=== PATIENT | female | born 1940 | race Caucasian/White ===

== ENCOUNTER 2022-06-12 08:51 | Outpatient (CLI) | payer MEDICARE | END 2022-06-12 08:52 | disposition home or self-care (01) | LOC: RAD-FRANK 08:51 | PROVIDERS: ATTEND Nurse Practitioner Family | DX: R60.0 Localized edema (principal) | CPT/HCPCS: 71046 ==

== ENCOUNTER 2022-09-05 12:31 | Emergency (ER) | payer MEDICARE ==
[2022-09-05 13:28] LABS: #Lymphocytes 1.1 thou/uL (1.20-3.40); #Monocytes 1.2 thou/uL (0.11-0.59); #Neutrophils 9.5 thou/uL (1.40-6.50); %Basophils 0.3 % (0.0-1.0); %Eosinophils 0.4 % (0.0-10.0); %Lymphocytes 9.2 % (21.0-51.0); %Neutrophils 80.1 % (42.0-75.0); Hemoglobin 11.4 g/dL (12.0-16.0); Mean Corpuscular HGB CONC 30.6 g/dL (32.0-36.0); Mean Corpuscular Hemoglobin 28.5 pg (27.0-31.0); Mean Corpuscular Volume 93.3 fl (78.0-98.0); Platelet Count 506 10x3/uL (130-400); RBC Distribution Width 11.6 % (11.5-14.5); Red Blood Cell (RBC) Count 3.98 mill/uL (4.20-5.40); White Blood Cell (WBC) Count 11.9 10x3/uL (4.8-10.8)
[2022-09-05 13:41] LABS: ALT (SGPT) 9 U/L (8-55); AST (SGOT) 32 U/L (5-34); Alkaline Phosphatase 99 U/L (40-110); Anion Gap 11 mmol/L (10-20); BUN (Urea Nitrogen) 24 mg/dL (9.8-20.1); Bilirubin, Total 0.3 mg/dL (0.2-1.2); Calc. Creatinine Clearance 0 mL/min (70-130); Calcium 8.8 mg/dL (7.8-10.44); Carbon Dioxide 35 mmol/L (23-31); Chloride 95 mmol/L (98-107); Estimated GFR 36; Glucose 112 mg/dL (83-110); Magnesium 1.6 mg/dL (1.6-2.6); Potassium 3.9 mmol/L (3.5-5.1); Sodium 137 mmol/L (136-145)
[2022-09-05] MEDS ORDERED: Furosemide 40 MG/4 ML VIAL ONE (14:24)
== END 2022-09-05 15:10 | disposition home or self-care (01) ==
LOC: ERS 12:31
DX: R60.0 Localized edema (principal); R79.89 Other specified abnormal findings of blood chemistry
CPT/HCPCS: 36415; 71045; 80053; 83735; 83880; 84484; 85025; 93005; 96374; J1940

== ENCOUNTER 2022-09-30 15:42 | Inpatient (IN) | payer MEDICARE ==
[2022-09-30] MEDS ORDERED: Ipratropium/Albuterol 3 ML NEB ONE (16:12)
[2022-09-30] MEDS ORDERED: Dexamethasone 4 mg/ml Vial ONE (16:14)
[2022-09-30] MEDS ORDERED: Magnesium 2 GM/50 ML BAG (IN WATER) ONE (16:14)
[2022-09-30] MEDS ORDERED: Cefepime 2 GM VIAL ONE (16:14)
[2022-09-30] MEDS ORDERED: Vancomycin 1 GM/200 ML (FROZEN) BAG ONE (16:14)
[2022-09-30] MEDS ORDERED: NOREPINEPHRINE 8 MG/250 ML-D5W 250 ML ONE (16:41)
[2022-09-30 17:10] LABS: Hemoglobin 9.3 g/dL (12.0-16.0); Mean Corpuscular HGB CONC 31.5 g/dL (32.0-36.0); Mean Corpuscular Hemoglobin 28.5 pg (27.0-31.0); Mean Corpuscular Volume 90.4 fl (78.0-98.0); Mean Platelet Volume 6.8 fL (7.4-10.4); Platelet Count 433 10x3/uL (130-400); RBC Distribution Width 12.2 % (11.5-14.5); Red Blood Cell (RBC) Count 3.26 mill/uL (4.20-5.40); White Blood Cell (WBC) Count 10.5 10x3/uL (4.8-10.8)
[2022-09-30 17:35] LABS: Band 45 % (5-11); Lymphocytes 4 % (21-51); MDiff Complete? YES; Monocytes 2 % (0-10); Neutrophil 49 % (42-75); Platelet Morphology Comment Appears Increased; RBC Morphology Normal; Reflex for Review?? YES; Toxic Granulation SLIGHT
[2022-09-30 17:36] LABS: ALT (SGPT) 11 U/L (8-55); AST (SGOT) 29 U/L (5-34); Albumin 2.1 g/dL (3.4-4.8); Alkaline Phosphatase 87 U/L (40-110); Anion Gap 19 mmol/L (10-20); BUN (Urea Nitrogen) 82 mg/dL (9.8-20.1); Bilirubin, Total 0.5 mg/dL (0.2-1.2); CK (CPK) 133 U/L (29-168); Calc. Creatinine Clearance 0 mL/min (70-130); Calcium 7.1 mg/dL (7.8-10.44); Carbon Dioxide 18 mmol/L (23-31); Chloride 99 mmol/L (98-107); Estimated GFR 16; Globulin 3.4 g/dL (2.4-3.5); Glucose 86 mg/dL (83-110); Lipase 19 U/L (8-78); Potassium 3.2 mmol/L (3.5-5.1); Protein, Total 5.5 g/dL (5.8-8.1); Sodium 133 mmol/L (136-145)
[2022-09-30] MEDS ORDERED: Aspirin Chewable 81 MG TAB ONE (17:44)
[2022-09-30 17:52] LABS: CKMB 3.4 ng/mL (0-6.6)
[2022-09-30 17:54] LABS: Bacteria/HPF 4+ HPF (None Seen); Bilirubin Negative (Negative); Blood, Urine Trace (Negative); Clarity Turbid (Clear); Glucose, Urine (Dipstick) Normal (Negative); Ketone, Urine Negative (Negative); Leukocyte 250 Leu/uL (Negative); Nitrite 1+ (Negative); Protein, Urine (Dipstick) Negative (Neg-Trace); Specific Gravity, Urine 1.011 (1.002-1.036); Squamous Epithelial 0-3 HPF (0-3); Urobilinogen Normal mg/dL (Less than 2); WBC/HPF 21-50 HPF (0-3); pH, Urine 5.5 (5.0-9.0)
[2022-09-30] MEDS ORDERED: Acetaminophen 650 MG Suppository PR PRN (20:26)
[2022-09-30] MEDS ORDERED: Sodium Chloride 0.9% 1,000 ML IV SCH (20:30)
[2022-09-30] MEDS ORDERED: Ondansetron PF 4 MG/2 ML Vial IVP PRN (20:30)
[2022-09-30] MEDS ORDERED: Ondansetron ODT 4 MG TAB SL PRN (20:30)
[2022-09-30] MEDS ORDERED: Ipratropium/Albuterol 3 ML NEB NEB PRN (20:37)
[2022-09-30] MEDS ORDERED: Potassium Chloride 20 MEQ TAB PO SCH (20:45)
[2022-09-30] MEDS ORDERED: Electrolyte Replacement Protocol 1 EACH FS SCH (20:45)
[2022-09-30 21:12] LABS: Magnesium 1.1 mg/dL (1.6-2.6)
[2022-09-30 22:44] LABS: Troponin I 0.063 ng/mL (< 0.028)
[2022-09-30] MEDS ORDERED: Vancomycin Dose by Levels Sliding Scale (Wt <71) FS SCH (23:30)
[2022-10-01] MEDS ORDERED: VANCOMYCIN 1.25 GM/250 ML BAG 1.25 GM in Premix Bag 1 BAG IVPB SCH (01:00)
[2022-10-01] MEDS: metroNIDAZOLE 500 MG in Premix Bag 1 BAG IVPB SCH ×3 (01:09→16:07)
[2022-10-01] MEDS: Cefepime 1 GM in Sodium Chloride 0.9% 100 ML IVPB SCH ×2 (04:14→16:10)
[2022-10-01 04:51] LABS: Hemoglobin 8.6 g/dL (12.0-16.0); Mean Corpuscular Hemoglobin 28.3 pg (27.0-31.0); Mean Corpuscular Volume 91.3 fl (78.0-98.0); Platelet Count 433 10x3/uL (130-400); RBC Distribution Width 12.2 % (11.5-14.5); Red Blood Cell (RBC) Count 3.02 mill/uL (4.20-5.40); White Blood Cell (WBC) Count 10.3 10x3/uL (4.8-10.8)
[2022-10-01 05:00] LABS: Anion Gap 15 mmol/L (10-20); BUN (Urea Nitrogen) 82 mg/dL (9.8-20.1); Calc. Creatinine Clearance 17 mL/min (70-130); Calcium 7.5 mg/dL (7.8-10.44); Carbon Dioxide 23 mmol/L (23-31); Chloride 99 mmol/L (98-107); Estimated GFR 16; Glucose 173 mg/dL (83-110); Magnesium 1.6 mg/dL (1.6-2.6); Potassium 3.4 mmol/L (3.5-5.1); Sodium 134 mmol/L (136-145)
[2022-10-01 05:02] LABS: Troponin I 0.074 ng/mL (< 0.028)
[2022-10-01 05:44] LABS: Band 50 % (5-11); Lymphocytes 3 % (21-51); MDiff Complete? YES; Monocytes 2 % (0-10); Neutrophil 45 % (42-75)
[2022-10-01 06:49] LABS: SARS-CoV-2 NAA Rapid Test Not Detected (NotDetected)
[2022-10-01] MEDS ORDERED: MAGNESIUM IVPB SCH (11:15)
[2022-10-01] MEDS ORDERED: ADMIXTURE FEE IVPB SCH ×2 (11:15→11:30)
[2022-10-01] MEDS ORDERED: MAGNESIUM SULFATE IVPB SCH (11:30)
[2022-10-01] MEDS ORDERED: SODIUM CHLORIDE IVPB SCH (11:30)
[2022-10-01 17:21] LABS: Vancomycin, Random 12.5 ug/mL (See Comment)
[2022-10-01] MEDS ORDERED: methylPREDNISolone Sod Succ 40 MG VIAL IVP SCH (17:30)
[2022-10-01] MEDS: NOREPINEPHRINE 8 MG/250 ML-D5W 250 ML IVPB SCH (17:58)
[2022-10-01] MEDS ORDERED: Vancomycin HCl 750 MG in Sodium Chloride 0.9% 250 ML 250 ML IVPB SCH (18:00)
[2022-10-01] MEDS: Ipratropium/Albuterol 3 ML NEB NEB SCH ×2 (19:11→23:31)
[2022-10-01] MEDS: Acetaminophen 325 MG TAB PO PRN (20:13)
[2022-10-01 22:45] LABS: Campy jejuni + coli by PCR Negative (Negative); STEC Shiga Toxin 1+2 Negative (Negative); Salmonella spp. by PCR Negative (Negative); Shigella spp + EIEC by PCR Negative (Negative)
[2022-10-02] MEDS ORDERED: Melatonin 3 MG TAB PO SCH (00:30)
[2022-10-02] MEDS: metroNIDAZOLE 500 MG in Premix Bag 1 BAG IVPB SCH ×3 (00:50→16:12)
[2022-10-02] MEDS: Cefepime 1 GM in Sodium Chloride 0.9% 100 ML IVPB SCH (04:18)
[2022-10-02 04:55] LABS: Iron 32 ug/dL (50-170)
[2022-10-02 05:19] LABS: Ferritin 333.19 ng/mL (10-291)
[2022-10-02] MEDS: Ipratropium/Albuterol 3 ML NEB NEB SCH ×4 (07:08→23:43)
[2022-10-02] MEDS: methylPREDNISolone Sod Succ 40 MG VIAL IVP SCH (09:18)
[2022-10-02 09:23] LABS: Iron Binding Capacity, Total 53 mcg/dL (265-497)
[2022-10-02] MEDS ORDERED: Lactated Ringer's 500 ML IV SCH (09:30)
[2022-10-02 09:53] LABS: ALT (SGPT) 9 U/L (8-55); AST (SGOT) 39 U/L (5-34); Albumin 2.1 g/dL (3.4-4.8); Alkaline Phosphatase 89 U/L (40-110); Anion Gap 15 mmol/L (10-20); BUN (Urea Nitrogen) 69 mg/dL (9.8-20.1); Bilirubin, Total Less than 0.2 mg/dL (0.2-1.2); Calc. Creatinine Clearance 23 mL/min (70-130); Calcium 7.8 mg/dL (7.8-10.44); Carbon Dioxide 21 mmol/L (23-31); Chloride 103 mmol/L (98-107); Estimated GFR 22; Globulin 3.3 g/dL (2.4-3.5); Glucose 178 mg/dL (83-110); Potassium 3.6 mmol/L (3.5-5.1); Protein, Total 5.4 g/dL (5.8-8.1); Sodium 135 mmol/L (136-145)
[2022-10-02] MEDS: cefTRIAXone\\ROCEPHIN 1 GM in Sodium Chloride 0.9% 100 ML IVPB SCH (16:12)
[2022-10-02] MEDS ORDERED: Melatonin 3 MG TAB PO PRN (19:12)
[2022-10-02] MEDS: Apixaban 5 MG TAB PO SCH (21:26)
[2022-10-03] MEDS: metroNIDAZOLE 500 MG in Premix Bag 1 BAG IVPB SCH ×4 (00:29→23:11)
[2022-10-03] MEDS: NOREPINEPHRINE 8 MG/250 ML-D5W 250 ML IVPB SCH (00:30)
[2022-10-03] MEDS: Acetaminophen 325 MG TAB PO PRN ×2 (02:50→10:20)
[2022-10-03] MEDS: Ipratropium/Albuterol 3 ML NEB NEB SCH ×4 (06:50→23:33)
[2022-10-03 08:06] LABS: Hemoglobin 8.5 g/dL (12.0-16.0); Mean Corpuscular HGB CONC 30.9 g/dL (32.0-36.0); Mean Corpuscular Hemoglobin 28.7 pg (27.0-31.0); Mean Corpuscular Volume 92.8 fl (78.0-98.0); Mean Platelet Volume 6.9 fL (7.4-10.4); Platelet Count 406 10x3/uL (130-400); RBC Distribution Width 12.5 % (11.5-14.5); Red Blood Cell (RBC) Count 2.97 mill/uL (4.20-5.40); White Blood Cell (WBC) Count 11.9 10x3/uL (4.8-10.8)
[2022-10-03 08:28] LABS: Band 21 % (5-11); Lymphocytes 3 % (21-51); MDiff Complete? YES; Monocytes 4 % (0-10); Neutrophil 72 % (42-75); Toxic Granulation SLIGHT
[2022-10-03 08:37] LABS: Anion Gap 13 mmol/L (10-20); BUN (Urea Nitrogen) 53 mg/dL (9.8-20.1); Calc. Creatinine Clearance 32 mL/min (70-130); Carbon Dioxide 22 mmol/L (23-31); Chloride 105 mmol/L (98-107); Estimated GFR 34; Glucose 79 mg/dL (83-110); Potassium 3.7 mmol/L (3.5-5.1); Sodium 136 mmol/L (136-145)
[2022-10-03] MEDS: methylPREDNISolone Sod Succ 40 MG VIAL IVP SCH (08:50)
[2022-10-03] MEDS: Apixaban 5 MG TAB PO SCH ×2 (08:50→20:45)
[2022-10-03] MEDS ORDERED: Albumin 25% 25 GM/100 ML BOT IVPB SCH (10:30)
[2022-10-03] MEDS ORDERED: Furosemide 20 MG/2 ML VIAL SLOW IVP SCH (10:30)
[2022-10-03] MEDS: cefTRIAXone\\ROCEPHIN 1 GM in Sodium Chloride 0.9% 100 ML IVPB SCH (15:39)
[2022-10-03] MEDS ORDERED: QUEtiapine 25 MG TAB PO SCH (20:30)
[2022-10-04 04:29] LABS: #Lymphocytes 0.7 thou/uL (1.20-3.40); #Monocytes 0.7 thou/uL (0.11-0.59); #Neutrophils 6.5 thou/uL (1.40-6.50); %Eosinophils 0.1 % (0.0-10.0); %Lymphocytes 8.8 % (21.0-51.0); %Monocytes 9.2 % (0.0-10.0); Hemoglobin 7.4 g/dL (12.0-16.0); Mean Corpuscular HGB CONC 32.2 g/dL (32.0-36.0); Mean Corpuscular Hemoglobin 29.8 pg (27.0-31.0); Mean Corpuscular Volume 92.6 fl (78.0-98.0); Mean Platelet Volume 6.8 fL (7.4-10.4); Platelet Count 339 10x3/uL (130-400); RBC Distribution Width 12.6 % (11.5-14.5); Red Blood Cell (RBC) Count 2.48 mill/uL (4.20-5.40); White Blood Cell (WBC) Count 7.9 10x3/uL (4.8-10.8)
[2022-10-04 04:54] LABS: Anion Gap 11 mmol/L (10-20); BUN (Urea Nitrogen) 48 mg/dL (9.8-20.1); Calc. Creatinine Clearance 34 mL/min (70-130); Carbon Dioxide 28 mmol/L (23-31); Chloride 104 mmol/L (98-107); Estimated GFR 37; Glucose 92 mg/dL (83-110); Potassium 3.7 mmol/L (3.5-5.1); Sodium 139 mmol/L (136-145)
[2022-10-04] MEDS: Acetaminophen 325 MG TAB PO PRN ×2 (05:00→22:50)
[2022-10-04] MEDS: Ipratropium/Albuterol 3 ML NEB NEB SCH ×4 (06:43→23:50)
[2022-10-04] MEDS ORDERED: Albumin 25% 25 GM/100 ML BOT IVPB SCH (08:30)
[2022-10-04] MEDS: metroNIDAZOLE 500 MG in Premix Bag 1 BAG IVPB SCH ×3 (08:36→22:52)
[2022-10-04] MEDS: Apixaban 5 MG TAB PO SCH ×2 (08:36→20:10)
[2022-10-04] MEDS ORDERED: methylPREDNISolone Sod Succ 40 MG VIAL IVP SCH (09:00)
[2022-10-04] MEDS ORDERED: Furosemide 20 MG/2 ML VIAL SLOW IVP SCH (09:15)
[2022-10-04 12:39] LABS: Hemoglobin 7.5 g/dL (12.0-16.0)
[2022-10-04] MEDS: cefTRIAXone\\ROCEPHIN 1 GM in Sodium Chloride 0.9% 100 ML IVPB SCH (17:10)
[2022-10-05] MEDS: Ipratropium/Albuterol 3 ML NEB NEB SCH ×4 (07:28→23:22)
[2022-10-05] MEDS ORDERED: predniSONE 5 MG TAB PO SCH (08:00)
[2022-10-05] MEDS: Apixaban 5 MG TAB PO SCH ×2 (08:35→19:59)
[2022-10-05] MEDS: metroNIDAZOLE 500 MG in Premix Bag 1 BAG IVPB SCH ×2 (08:35→15:24)
[2022-10-05 10:19] VITALS: BMI 29.8
[2022-10-05] MEDS: cefTRIAXone\\ROCEPHIN 1 GM in Sodium Chloride 0.9% 100 ML IVPB SCH (16:09)
[2022-10-05] MEDS: Acetaminophen 325 MG TAB PO PRN (19:59)
[2022-10-06] MEDS: Acetaminophen 325 MG TAB PO PRN (02:00)
[2022-10-06] MEDS: Ipratropium/Albuterol 3 ML NEB NEB SCH ×3 (06:23→18:58)
[2022-10-06 06:57] LABS: Hemoglobin 6.4 g/dL (12.0-16.0); Mean Corpuscular HGB CONC 30.6 g/dL (32.0-36.0); Mean Corpuscular Hemoglobin 28.4 pg (27.0-31.0); Mean Corpuscular Volume 92.9 fl (78.0-98.0); Mean Platelet Volume 6.8 fL (7.4-10.4); Platelet Count 342 10x3/uL (130-400); RBC Distribution Width 12.9 % (11.5-14.5); Red Blood Cell (RBC) Count 2.27 mill/uL (4.20-5.40); White Blood Cell (WBC) Count 10.3 10x3/uL (4.8-10.8)
[2022-10-06 07:18] LABS: Anion Gap 9 mmol/L (10-20); BUN (Urea Nitrogen) 23 mg/dL (9.8-20.1); Calc. Creatinine Clearance 61 mL/min (70-130); Calcium 7.9 mg/dL (7.8-10.44); Carbon Dioxide 31 mmol/L (23-31); Chloride 105 mmol/L (98-107); Estimated GFR 72; Glucose 86 mg/dL (83-110); Potassium 4.1 mmol/L (3.5-5.1); Sodium 141 mmol/L (136-145)
[2022-10-06] MEDS: Apixaban 5 MG TAB PO SCH ×2 (08:30→20:29)
[2022-10-06] MEDS: predniSONE 20 MG TAB PO SCH (08:30)
[2022-10-06 09:28] LABS: Band 24 % (5-11); Eosinophils 1 % (0-10); Hypochromia SLIGHT = 6-15 cells (100X) (0-5/hpf); Lymphocytes 12 % (21-51); MDiff Complete? YES; Monocytes 4 % (0-10); Neutrophil 59 % (42-75); Polychromasia SLIGHT = 2-3 cells (100X) (0-2/hpf)
[2022-10-06] MEDS ORDERED: Furosemide 40 MG/4 ML VIAL SLOW IVP SCH (16:45)
[2022-10-07] MEDS: Acetaminophen 325 MG TAB PO PRN (02:24)
[2022-10-07 07:35] LABS: #Eosinphils 0.1 thou/uL (0.0-0.7); #Lymphocytes 1.2 thou/uL (1.20-3.40); #Monocytes 0.9 thou/uL (0.11-0.59); #Neutrophils 7.1 thou/uL (1.40-6.50); %Eosinophils 1.5 % (0.0-10.0); %Lymphocytes 12.6 % (21.0-51.0); %Monocytes 9.7 % (0.0-10.0); %Neutrophils 76.1 % (42.0-75.0); Hemoglobin 7.6 g/dL (12.0-16.0); Mean Corpuscular HGB CONC 30.4 g/dL (32.0-36.0); Mean Corpuscular Hemoglobin 29.4 pg (27.0-31.0); Mean Corpuscular Volume 96.5 fl (78.0-98.0); Mean Platelet Volume 6.9 fL (7.4-10.4); Platelet Count 332 10x3/uL (130-400); RBC Distribution Width 13.1 % (11.5-14.5); Red Blood Cell (RBC) Count 2.59 mill/uL (4.20-5.40); White Blood Cell (WBC) Count 9.3 10x3/uL (4.8-10.8)
[2022-10-07 07:37] LABS: Anion Gap 11 mmol/L (10-20); BUN (Urea Nitrogen) 19 mg/dL (9.8-20.1); Calc. Creatinine Clearance 58 mL/min (70-130); Calcium 7.6 mg/dL (7.8-10.44); Carbon Dioxide 29 mmol/L (23-31); Chloride 103 mmol/L (98-107); Estimated GFR 69; Glucose 80 mg/dL (83-110); Potassium 4.4 mmol/L (3.5-5.1); Sodium 139 mmol/L (136-145)
[2022-10-07] MEDS: predniSONE 20 MG TAB PO SCH (08:58)
[2022-10-07] MEDS: Apixaban 5 MG TAB PO SCH ×2 (08:58→20:40)
[2022-10-07] MEDS: Furosemide 40 MG TAB PO SCH (08:58)
[2022-10-07] MEDS: Ipratropium/Albuterol 3 ML NEB NEB SCH ×5 (10:51→23:19)
[2022-10-08] MEDS: Ipratropium/Albuterol 3 ML NEB NEB SCH ×3 (06:28→18:53)
[2022-10-08] MEDS: predniSONE 20 MG TAB PO SCH (08:16)
[2022-10-08] MEDS: Furosemide 40 MG TAB PO SCH (08:16)
[2022-10-08] MEDS: Apixaban 5 MG TAB PO SCH ×2 (08:16→20:49)
[2022-10-09] MEDS: Ipratropium/Albuterol 3 ML NEB NEB SCH ×5 (00:04→23:32)
[2022-10-09] MEDS: Apixaban 5 MG TAB PO SCH ×2 (08:18→20:38)
[2022-10-09] MEDS: predniSONE 20 MG TAB PO SCH (08:18)
[2022-10-09] MEDS: Furosemide 40 MG TAB PO SCH (08:19)
[2022-10-10] MEDS ORDERED: traZODone HCl 50 MG TAB PO SCH (01:00)
[2022-10-10] MEDS: Ipratropium/Albuterol 3 ML NEB NEB SCH ×3 (06:56→19:00)
[2022-10-10] MEDS: Apixaban 5 MG TAB PO SCH ×2 (07:55→20:10)
[2022-10-10] MEDS: predniSONE 20 MG TAB PO SCH (07:55)
[2022-10-10] MEDS: Furosemide 40 MG TAB PO SCH (07:55)
[2022-10-11] MEDS: Ipratropium/Albuterol 3 ML NEB NEB SCH ×4 (00:10→18:17)
[2022-10-11 07:34] LABS: #Eosinphils 0.1 thou/uL (0.0-0.7); #Lymphocytes 1.2 thou/uL (1.20-3.40); #Neutrophils 8.2 thou/uL (1.40-6.50); %Basophils 0.1 % (0.0-1.0); %Eosinophils 0.7 % (0.0-10.0); %Lymphocytes 11.3 % (21.0-51.0); %Monocytes 9.9 % (0.0-10.0); %Neutrophils 78.1 % (42.0-75.0); Mean Corpuscular HGB CONC 30.3 g/dL (32.0-36.0); Mean Corpuscular Hemoglobin 29.4 pg (27.0-31.0); Mean Platelet Volume 6.5 fL (7.4-10.4); Platelet Count 474 10x3/uL (130-400); RBC Distribution Width 14.4 % (11.5-14.5); Red Blood Cell (RBC) Count 2.39 mill/uL (4.20-5.40); White Blood Cell (WBC) Count 10.5 10x3/uL (4.8-10.8)
[2022-10-11 07:49] LABS: BUN (Urea Nitrogen) 21 mg/dL (9.8-20.1); Calc. Creatinine Clearance 68 mL/min (70-130); Estimated GFR 83; Glucose 90 mg/dL (83-110)
[2022-10-11 07:59] LABS: Anion Gap 15 mmol/L (10-20); Carbon Dioxide 34 mmol/L (23-31); Chloride 97 mmol/L (98-107); Potassium 4.5 mmol/L (3.5-5.1); Sodium 141 mmol/L (136-145)
[2022-10-11] MEDS: Furosemide 40 MG TAB PO SCH (08:34)
[2022-10-11] MEDS: predniSONE 20 MG TAB PO SCH (08:34)
[2022-10-11] MEDS: Apixaban 5 MG TAB PO SCH ×2 (08:34→20:32)
[2022-10-12] MEDS: Ipratropium/Albuterol 3 ML NEB NEB SCH ×4 (00:04→18:19)
[2022-10-12 06:23] LABS: #Monocytes 0.9 thou/uL (0.11-0.59); %Basophils 0.1 % (0.0-1.0); %Eosinophils 0.3 % (0.0-10.0); %Lymphocytes 13.2 % (21.0-51.0); %Monocytes 11.1 % (0.0-10.0); %Neutrophils 75.3 % (42.0-75.0); Hemoglobin 6.5 g/dL (12.0-16.0); Mean Corpuscular HGB CONC 30.8 g/dL (32.0-36.0); Mean Corpuscular Hemoglobin 29.7 pg (27.0-31.0); Mean Corpuscular Volume 96.5 fl (78.0-98.0); Mean Platelet Volume 6.4 fL (7.4-10.4); Platelet Count 515 10x3/uL (130-400); RBC Distribution Width 14.5 % (11.5-14.5); Red Blood Cell (RBC) Count 2.19 mill/uL (4.20-5.40); White Blood Cell (WBC) Count 7.9 10x3/uL (4.8-10.8)
[2022-10-12 06:45] LABS: BUN (Urea Nitrogen) 23 mg/dL (9.8-20.1); Calc. Creatinine Clearance 69 mL/min (70-130); Calcium 8.2 mg/dL (7.8-10.44); Estimated GFR 85; Glucose 84 mg/dL (83-110)
[2022-10-12 06:54] LABS: Anion Gap 14 mmol/L (10-20); Carbon Dioxide 34 mmol/L (23-31); Chloride 96 mmol/L (98-107); Potassium 4.8 mmol/L (3.5-5.1); Sodium 139 mmol/L (136-145)
[2022-10-12] MEDS: predniSONE 20 MG TAB PO SCH (08:38)
[2022-10-12] MEDS: Furosemide 40 MG TAB PO SCH (08:38)
[2022-10-12] MEDS ORDERED: Iopamidol 370 76% 50 ML VIAL FS ONE (12:47)
[2022-10-12] MEDS ORDERED: Melatonin 3 MG TAB PO SCH (21:00)
[2022-10-13] MEDS: Ipratropium/Albuterol 3 ML NEB NEB SCH ×3 (00:31→15:03)
[2022-10-13 07:05] LABS: #Eosinphils 0.1 thou/uL (0.0-0.7); #Lymphocytes 0.9 thou/uL (1.20-3.40); #Monocytes 0.9 thou/uL (0.11-0.59); #Neutrophils 5.4 thou/uL (1.40-6.50); %Basophils 0.3 % (0.0-1.0); %Eosinophils 0.7 % (0.0-10.0); %Lymphocytes 12.6 % (21.0-51.0); %Monocytes 12.6 % (0.0-10.0); %Neutrophils 73.7 % (42.0-75.0); Hemoglobin 8.9 g/dL (12.0-16.0); Mean Corpuscular HGB CONC 31.4 g/dL (32.0-36.0); Mean Corpuscular Hemoglobin 30.1 pg (27.0-31.0); Mean Corpuscular Volume 95.9 fl (78.0-98.0); Mean Platelet Volume 6.5 fL (7.4-10.4); Platelet Count 495 10x3/uL (130-400); RBC Distribution Width 15.6 % (11.5-14.5); Red Blood Cell (RBC) Count 2.96 mill/uL (4.20-5.40); White Blood Cell (WBC) Count 7.3 10x3/uL (4.8-10.8)
[2022-10-13 07:12] LABS: Anion Gap 12 mmol/L (10-20); BUN (Urea Nitrogen) 23 mg/dL (9.8-20.1); Calc. Creatinine Clearance 72 mL/min (70-130); Calcium 8.5 mg/dL (7.8-10.44); Carbon Dioxide 35 mmol/L (23-31); Chloride 97 mmol/L (98-107); Estimated GFR 87; Glucose 76 mg/dL (83-110); Potassium 4.4 mmol/L (3.5-5.1); Sodium 140 mmol/L (136-145)
[2022-10-13] MEDS: Furosemide 40 MG TAB PO SCH (09:05)
[2022-10-13 15:08] VITALS: BP 110/74; TEMP 98
== END 2022-10-13 17:03 | DRG 871 ==
LOC: ERS 15:42 → CCU 17:38 → T4-A 10-04 15:35
PROVIDERS: ADMIT Internal Medicine; ATTEND Family Medicine
PROC: 06HY33Z Insertion of Infusion Device into Lower Vein, Percutaneous Approach (ICD-10-PCS; principal; 2022-09-30)
PROC: 3E03329 Introduction of Other Anti-infective into Peripheral Vein, Percutaneous Approach (ICD-10-PCS; 2022-09-30)
PROC: 3E043XZ Introduction of Vasopressor into Central Vein, Percutaneous Approach (ICD-10-PCS; 2022-09-30)
PROC: 30233N1 Transfusion of Nonautologous Red Blood Cells into Peripheral Vein, Percutaneous Approach (ICD-10-PCS; 2022-10-06)
PROC: 06H03DZ Insertion of Intraluminal Device into Inferior Vena Cava, Percutaneous Approach (ICD-10-PCS; 2022-10-12)
DX: A41.51 Sepsis due to Escherichia coli [E. coli] (principal); I21.A1 Myocardial infarction type 2; R65.21 Severe sepsis with septic shock; J96.21 Acute and chronic respiratory failure with hypoxia; N17.9 Acute kidney failure, unspecified; J44.1 Chronic obstructive pulmonary disease with (acute) exacerbation; N18.4 Chronic kidney disease, stage 4 (severe); E87.1 Hypo-osmolality and hyponatremia; K55.9 Vascular disorder of intestine, unspecified; N30.00 Acute cystitis without hematuria; I82.431 Acute embolism and thrombosis of right popliteal vein; Z20.822 Contact with and (suspected) exposure to COVID-19; E87.6 Hypokalemia; E83.42 Hypomagnesemia; E88.09 Other disorders of plasma-protein metabolism, not elsewhere classified; D63.1 Anemia in chronic kidney disease; I12.9 Hypertensive chronic kidney disease with stage 1 through stage 4 chronic kidney disease, or unspecified chronic kidney disease; E86.0 Dehydration; Z90.710 Acquired absence of both cervix and uterus; Z87.891 Personal history of nicotine dependence; Z79.899 Other long term (current) drug therapy; Z79.82 Long term (current) use of aspirin; Z99.81 Dependence on supplemental oxygen
CPT/HCPCS: 36415; 36430; 36556; 37191; 51702; 71045; 74176; 80048; 80053; 80202; 81003; 81015; 82040; 82550; 82553; 82607; 82728; 83540; 83550; 83605; 83690; 83735; 83880; 84484; 85025; 85060; 86850; 86900; 86901; 87077; 87086; 87186; 87324; 87328; 87329; 87449; 87505; 87811; 93005; 93306; 93970; 94640; 96365; 96366; 96368; 96375; 97139; 99292; C1769; C1880; J0692; J0696; J1100; J1650; J1940; J2920; J3370; J3370-JW; J3475; J3490; J7050; J7120; J7512; J7611; J7620; P9016; P9047; Q9967; U0002; U0003; U0005

== ENCOUNTER 2022-10-20 08:50 | Inpatient (IN) | payer MEDICARE ==
[2022-10-20] MEDS ORDERED: Iopamidol-370 76% 500 ML 1 ML ONE (09:22)
[2022-10-20] MEDS ORDERED: Dexamethasone 4 mg/ml Vial ONE (09:23)
[2022-10-20] MEDS ORDERED: Ipratropium/Albuterol 3 ML NEB ONE ×2 (09:27→13:53)
[2022-10-20 09:35] LABS: Actual Bicarbonate (HCO3a) 37.9 mEq/L (22-28); Analyzer IN Cardio ER; Base Excess (BEa) 8.3 mEq/L (-2.0 to +3.0); Carboxyhemoglobin (COHb) 0.7 gm% (0.0-3.0); Hemoglobin (Hb) 10.5 g/dL (12.0-16.0); O2 Tension (PaO2), arterial 131.7 mmHg (> 60.0); Potassium - ABG Lab 3.53 mmol/L (3.70-5.30); pH, Arterial 7.25 (7.35-7.45)
[2022-10-20 09:41] LABS: CO2 Tension 88.4 mmHg (35.0-45.0)
[2022-10-20 09:42] LABS: Puncture Site RRA
[2022-10-20 10:04] LABS: INR-International Normal Ratio 0.9; Prothrombin Time 12.4 sec (12.0-14.7)
[2022-10-20 10:14] LABS: ALT (SGPT) 22 U/L (8-55); AST (SGOT) 27 U/L (5-34); Albumin 3.2 g/dL (3.4-4.8); Alkaline Phosphatase 80 U/L (40-110); Anion Gap 12 mmol/L (10-20); BUN (Urea Nitrogen) 21 mg/dL (9.8-20.1); Bilirubin, Total 0.4 mg/dL (0.2-1.2); CK (CPK) 27 U/L (29-168); Calc. Creatinine Clearance 0 mL/min (70-130); Calcium 9.3 mg/dL (7.8-10.44); Carbon Dioxide 34 mmol/L (23-31); Chloride 99 mmol/L (98-107); Estimated GFR 63; Globulin 3.5 g/dL (2.4-3.5); Glucose 122 mg/dL (83-110); Lipase 24 U/L (8-78); Potassium 3.7 mmol/L (3.5-5.1); Protein, Total 6.7 g/dL (5.8-8.1); Sodium 141 mmol/L (136-145)
[2022-10-20 10:22] LABS: SARS-CoV-2 NAA Rapid Test Not Detected (NotDetected)
[2022-10-20 10:40] LABS: #Lymphocytes 0.5 thou/uL (1.20-3.40); #Monocytes 0.7 thou/uL (0.11-0.59); #Neutrophils 7.8 thou/uL (1.40-6.50); %Basophils 0.1 % (0.0-1.0); %Eosinophils 0.4 % (0.0-10.0); %Lymphocytes 5.5 % (21.0-51.0); %Monocytes 7.7 % (0.0-10.0); %Neutrophils 86.3 % (42.0-75.0); Hemoglobin 9.7 g/dL (12.0-16.0); Mean Corpuscular HGB CONC 29.6 g/dL (32.0-36.0); Mean Corpuscular Hemoglobin 29.4 pg (27.0-31.0); Mean Corpuscular Volume 99.6 fl (78.0-98.0); Platelet Count 424 10x3/uL (130-400); RBC Distribution Width 14.6 % (11.5-14.5)
[2022-10-20 10:50] LABS: Hypochromia SLIGHT = 6-15 cells (100X) (0-5/hpf); MDiff Complete? YES; Platelet Morphology Comment Appears Increased; Polychromasia SLIGHT = 2-3 cells (100X) (0-2/hpf); Stomatocytes MODERATE= 6-15 cells (100X) (0-1/hpf); Target Cells SLIGHT = 2-5 cells (100X) (0-1/hpf)
[2022-10-20] MEDS ORDERED: Cefepime 2 GM VIAL ONE (11:19)
[2022-10-20] MEDS ORDERED: Guaifenesin DM 100-10/5 ML UDCUP PO PRN (12:30)
[2022-10-20] MEDS ORDERED: Bisacodyl 5 MG TAB PO PRN (12:30)
[2022-10-20] MEDS ORDERED: HYDROcodone/Acetaminophen 5/325 mg Tablet PO PRN (12:30)
[2022-10-20] MEDS ORDERED: Ondansetron PF 4 MG/2 ML Vial IVP PRN (12:30)
[2022-10-20] MEDS ORDERED: Senokot S 8.6-50 MG TAB PO PRN (12:30)
[2022-10-20] MEDS ORDERED: Acetaminophen 650 MG Suppository PR PRN (12:30)
[2022-10-20] MEDS ORDERED: Acetaminophen 325 MG TAB PO PRN (12:30)
[2022-10-20] MEDS ORDERED: busPIRone HCl 5 MG TAB PO PRN (12:34)
[2022-10-20] MEDS ORDERED: Vancomycin 1 GM/200 ML (FROZEN) BAG ONE (12:44)
[2022-10-20] MEDS ORDERED: cefTRIAXone\\ROCEPHIN 2 GM in Sodium Chloride 0.9% 100 ML IVPB SCH (14:00)
[2022-10-20] MEDS: Ipratropium/Albuterol 3 ML NEB NEB SCH ×2 (14:07→19:07)
[2022-10-20] MEDS ORDERED: methylPREDNISolone Sod Succ 40 MG VIAL ONE ×2 (15:32→22:58)
[2022-10-20] MEDS ORDERED: cefTRIAXone\\ROCEPHIN 2 GM VIAL ONE (15:32)
[2022-10-20] MEDS: methylPREDNISolone Sod Succ 40 MG VIAL IVP SCH ×2 (15:46→23:05)
[2022-10-20] MEDS: Budesonide 0.5 MG/2 ML NEB NEB SCH (19:08)
[2022-10-20] MEDS ORDERED: Famotidine 20 MG TAB PO SCH (21:00)
[2022-10-20] MEDS ORDERED: Famotidine 20 MG TAB ONE (22:58)
[2022-10-21 01:44] LABS: #Lymphocytes 0.4 thou/uL (1.20-3.40); #Monocytes 0.8 thou/uL (0.11-0.59); #Neutrophils 6.8 thou/uL (1.40-6.50); %Basophils 0.1 % (0.0-1.0); %Eosinophils 0.4 % (0.0-10.0); %Lymphocytes 5.2 % (21.0-51.0); %Monocytes 10.2 % (0.0-10.0); %Neutrophils 84.1 % (42.0-75.0); Hemoglobin 8.5 g/dL (12.0-16.0); Mean Corpuscular HGB CONC 30.8 g/dL (32.0-36.0); Mean Corpuscular Volume 97.6 fl (78.0-98.0); Mean Platelet Volume 7.2 fL (7.4-10.4); Platelet Count 408 10x3/uL (130-400); RBC Distribution Width 14.7 % (11.5-14.5); Red Blood Cell (RBC) Count 2.84 mill/uL (4.20-5.40)
[2022-10-21 02:20] LABS: Anion Gap 14 mmol/L (10-20); BUN (Urea Nitrogen) 20 mg/dL (9.8-20.1); Calc. Creatinine Clearance 0 mL/min (70-130); Carbon Dioxide 28 mmol/L (23-31); Chloride 102 mmol/L (98-107); Estimated GFR 69; Glucose 90 mg/dL (83-110); Potassium 4.1 mmol/L (3.5-5.1); Sodium 140 mmol/L (136-145)
[2022-10-21] MEDS ORDERED: LORazepam 2 MG/ML SYR.(CARPUJECT) ONE (04:08)
[2022-10-21] MEDS ORDERED: LORazepam 2 MG/ML SYR.(CARPUJECT) IVP SCH (04:15)
[2022-10-21] MEDS ORDERED: methylPREDNISolone Sod Succ 40 MG VIAL ONE (06:37)
[2022-10-21] MEDS: methylPREDNISolone Sod Succ 40 MG VIAL IVP SCH (06:37)
[2022-10-21] MEDS ORDERED: Budesonide 0.5 MG/2 ML NEB ONE (07:30)
[2022-10-21] MEDS ORDERED: Ipratropium/Albuterol 3 ML NEB ONE (07:30)
[2022-10-21] MEDS: Ipratropium/Albuterol 3 ML NEB NEB SCH (07:31)
[2022-10-21] MEDS: Budesonide 0.5 MG/2 ML NEB NEB SCH (07:32)
[2022-10-21 10:45] VITALS: BP 104/77; TEMP 98
== END 2022-10-21 10:43 | DRG 189 ==
LOC: ERS 08:50 → ERHOLD 12:18
PROVIDERS: ADMIT Hospitalist; ATTEND Hospitalist
DX: J96.21 Acute and chronic respiratory failure with hypoxia (principal); J44.1 Chronic obstructive pulmonary disease with (acute) exacerbation; J96.22 Acute and chronic respiratory failure with hypercapnia; Z66 Do not resuscitate; Z20.822 Contact with and (suspected) exposure to COVID-19; I10 Essential (primary) hypertension; D64.9 Anemia, unspecified; Z87.891 Personal history of nicotine dependence; Z99.81 Dependence on supplemental oxygen; Z79.51 Long term (current) use of inhaled steroids; Z79.52 Long term (current) use of systemic steroids; Z90.710 Acquired absence of both cervix and uterus
CPT/HCPCS: 36415; 36600; 71045; 71275; 74018; 80048; 80053; 82550; 82805; 83605; 83690; 83880; 84484; 85025; 85610; 85730; 87040; 93005; 94640; 94644; 94660; J0692; J0696; J1100; J1956; J2060; J2920; J3370-JW; J3490; J7611; J7620; J7626; Q9967; U0002

== ENCOUNTER 2022-10-25 08:16 | Inpatient (IN) | payer MEDICARE ==
[2022-10-25 08:38] LABS: Analyzer IN Cardio ER; Calcium, Ionized (venous) 1.06 mmol/L (1.16-1.32); Chloride (VBG) 104 mmol/L (98-106); Hemoglobin (Hb) 10.7 g/dL (11.7-16.1); Sodium 142.7 mmol/L (133-146)
[2022-10-25 08:52] LABS: pH (venous) 7.17 (7.32-7.43)
[2022-10-25 08:53] LABS: Actual Bicarbonate (HCO3v) 43 mEq/L (22-28)
[2022-10-25 08:58] LABS: #Eosinphils 0.1 thou/uL (0.0-0.7); #Lymphocytes 0.8 thou/uL (1.20-3.40); #Neutrophils 11.5 thou/uL (1.40-6.50); %Basophils 0.1 % (0.0-1.0); %Eosinophils 0.5 % (0.0-10.0); %Monocytes 7.2 % (0.0-10.0); %Neutrophils 86.3 % (42.0-75.0); Hemoglobin 9.7 g/dL (12.0-16.0); Mean Corpuscular HGB CONC 28.9 g/dL (32.0-36.0); Platelet Count 423 10x3/uL (130-400); RBC Distribution Width 15.1 % (11.5-14.5); Red Blood Cell (RBC) Count 3.33 mill/uL (4.20-5.40); White Blood Cell (WBC) Count 13.4 10x3/uL (4.8-10.8)
[2022-10-25] MEDS ORDERED: Albuterol 2.5 MG/0.5 ML NEB ONE (08:59)
[2022-10-25] MEDS ORDERED: Ipratropium/Albuterol 3 ML NEB ONE ×3 (08:59→12:55)
[2022-10-25] MEDS ORDERED: Magnesium 2 GM/50 ML BAG (IN WATER) ONE (09:02)
[2022-10-25] MEDS ORDERED: Vancomycin 1 GM/200 ML (FROZEN) BAG ONE (09:02)
[2022-10-25] MEDS ORDERED: Cefepime 2 GM VIAL ONE (09:02)
[2022-10-25] MEDS ORDERED: methylPREDNISolone Sod Succ/PF 125 MG/2 ML VIAL ONE (09:10)
[2022-10-25 09:13] LABS: ALT (SGPT) 15 U/L (8-55); AST (SGOT) 26 U/L (5-34); Alkaline Phosphatase 82 U/L (40-110); Anion Gap 10 mmol/L (10-20); BUN (Urea Nitrogen) 13 mg/dL (9.8-20.1); Bilirubin, Total 0.3 mg/dL (0.2-1.2); Calc. Creatinine Clearance 0 mL/min (70-130); Calcium 8.3 mg/dL (7.8-10.44); Carbon Dioxide 37 mmol/L (23-31); Chloride 103 mmol/L (98-107); Estimated GFR 71; Globulin 3.5 g/dL (2.4-3.5); Glucose 110 mg/dL (83-110); Potassium 3.8 mmol/L (3.5-5.1); Protein, Total 6.5 g/dL (5.8-8.1); Sodium 146 mmol/L (136-145)
[2022-10-25 09:21] LABS: Hypochromia SLIGHT = 6-15 cells (100X) (0-5/hpf); MDiff Complete? YES; Macrocytosis SLIGHT = 6-15 cells (100X) (0-5/hpf); Platelet Morphology Comment Appears Increased; Polychromasia SLIGHT = 2-3 cells (100X) (0-2/hpf); Stomatocytes MODERATE= 6-15 cells (100X) (0-1/hpf)
[2022-10-25 10:22] LABS: Bilirubin Negative (Negative); Blood, Urine Negative (Negative); Clarity Clear (Clear); Glucose, Urine (Dipstick) Normal (Negative); Ketone, Urine Negative (Negative); Leukocyte Negative Leu/uL (Negative); Nitrite Negative (Negative); Protein, Urine (Dipstick) 30 mg/dL (Neg-Trace); RBC/HPF 0-3 HPF (0-3); Specific Gravity, Urine 1.013 (1.002-1.036); Squamous Epithelial None Seen HPF (0-3); Urobilinogen Normal mg/dL (Less than 2); WBC/HPF 0-3 HPF (0-3); pH, Urine 5.5 (5.0-9.0)
[2022-10-25 10:34] LABS: Bacteria/HPF 1+ HPF (None Seen)
[2022-10-25 10:35] LABS: Yeast-Budding 3+ HPF (None Seen); Yeast-Hyphae Rare HPF (None Seen)
[2022-10-25] MEDS ORDERED: Acetaminophen 325 MG Suppository PR PRN (12:02)
[2022-10-25 12:40] LABS: Troponin I 0.028 ng/mL (< 0.028)
[2022-10-25] MEDS: Ipratropium/Albuterol 3 ML NEB NEB SCH ×3 (12:57→22:55)
[2022-10-25] MEDS: Sodium Chloride 0.9% 1,000 ML IV SCH (13:39)
[2022-10-25 15:30] LABS: Troponin I 0.019 ng/mL (< 0.028)
[2022-10-25] MEDS ORDERED: methylPREDNISolone Sod Succ 40 MG VIAL IVP SCH (18:00)
[2022-10-25] MEDS ORDERED: cefTRIAXone\\ROCEPHIN 2 GM in Sodium Chloride 0.9% 100 ML IVPB SCH (21:00)
[2022-10-25] MEDS ORDERED: Sodium Chloride 0.9% 100 ML ONE (21:09)
[2022-10-25] MEDS ORDERED: Famotidine/PF 20 mg/2ml Vial ONE (21:09)
[2022-10-25] MEDS ORDERED: cefTRIAXone\\ROCEPHIN 2 GM VIAL ONE (21:09)
[2022-10-25] MEDS: Famotidine/PF 20 mg/2ml Vial SLOW IVP SCH (21:12)
[2022-10-26] MEDS: methylPREDNISolone Sod Succ 40 MG VIAL IVP SCH ×3 (05:28→18:12)
[2022-10-26] MEDS: Sodium Chloride 0.9% 1,000 ML IV SCH (05:28)
[2022-10-26 06:50] LABS: Anion Gap 9 mmol/L (10-20); BUN (Urea Nitrogen) 11 mg/dL (9.8-20.1); Calc. Creatinine Clearance 68 mL/min (70-130); Calcium 8.2 mg/dL (7.8-10.44); Carbon Dioxide 34 mmol/L (23-31); Chloride 105 mmol/L (98-107); Estimated GFR 81; Glucose 93 mg/dL (83-110); Potassium 3.6 mmol/L (3.5-5.1); Sodium 144 mmol/L (136-145)
[2022-10-26 06:51] LABS: Hemoglobin 8.2 g/dL (12.0-16.0); Mean Corpuscular HGB CONC 29.8 g/dL (32.0-36.0); Mean Corpuscular Hemoglobin 29.8 pg (27.0-31.0); Mean Corpuscular Volume 99.7 fl (78.0-98.0); Mean Platelet Volume 7.3 fL (7.4-10.4); Platelet Count 405 10x3/uL (130-400); RBC Distribution Width 14.9 % (11.5-14.5); Red Blood Cell (RBC) Count 2.77 mill/uL (4.20-5.40); White Blood Cell (WBC) Count 14.1 10x3/uL (4.8-10.8)
[2022-10-26] MEDS: Ipratropium/Albuterol 3 ML NEB NEB SCH ×3 (07:37→19:06)
[2022-10-26 08:22] LABS: #Lymphocytes 0.7 thou/uL (1.20-3.40); #Monocytes 1.1 thou/uL (0.11-0.59); #Neutrophils 12.2 thou/uL (1.40-6.50); %Basophils 0.1 % (0.0-1.0); %Eosinophils 0.4 % (0.0-10.0); %Monocytes 7.6 % (0.0-10.0); Hypochromia SLIGHT = 6-15 cells (100X) (0-5/hpf); MDiff Complete? YES; Platelet Morphology Comment Appears Increased; Polychromasia SLIGHT = 2-3 cells (100X) (0-2/hpf)
[2022-10-26] MEDS ORDERED: Ipratropium/Albuterol 3 ML NEB EZPAP PRN (10:37)
[2022-10-26] MEDS ORDERED: Piperacillin/Tazobactam 2.25 GM in Sodium Chloride 0.9% 100 ML IVPB SCH (12:00)
[2022-10-26] MEDS ORDERED: Piperacillin/Tazobactam 3.375 GM in Sodium Chloride 0.9% 100 ML IVPB SCH (14:00)
[2022-10-26] MEDS: Famotidine/PF 20 mg/2ml Vial SLOW IVP SCH (20:11)
[2022-10-26] MEDS ORDERED: methylPREDNISolone Sod Succ 40 MG VIAL IVP SCH (22:22)
[2022-10-26] MEDS: Piperacillin/Tazobactam 3.375 GM in Sodium Chloride 0.9% 100 ML IVPB SCH (22:30)
[2022-10-27] MEDS: Ipratropium/Albuterol 3 ML NEB NEB SCH ×4 (01:14→18:41)
[2022-10-27] MEDS ORDERED: Ipratropium Bromide 2.5 ml Neb ONE (02:10)
[2022-10-27] MEDS: Piperacillin/Tazobactam 3.375 GM in Sodium Chloride 0.9% 100 ML IVPB SCH ×3 (05:11→21:10)
[2022-10-27 06:06] LABS: #Lymphocytes 0.4 thou/uL (1.20-3.40); #Monocytes 0.5 thou/uL (0.11-0.59); #Neutrophils 7.8 thou/uL (1.40-6.50); %Basophils 0.2 % (0.0-1.0); %Eosinophils 0.1 % (0.0-10.0); %Lymphocytes 4.6 % (21.0-51.0); %Monocytes 5.6 % (0.0-10.0); %Neutrophils 89.4 % (42.0-75.0); Hemoglobin 7.9 g/dL (12.0-16.0); Mean Corpuscular HGB CONC 30.4 g/dL (32.0-36.0); Mean Corpuscular Hemoglobin 29.9 pg (27.0-31.0); Mean Corpuscular Volume 98.4 fl (78.0-98.0); Mean Platelet Volume 7.3 fL (7.4-10.4); Platelet Count 403 10x3/uL (130-400); RBC Distribution Width 14.6 % (11.5-14.5); Red Blood Cell (RBC) Count 2.63 mill/uL (4.20-5.40); White Blood Cell (WBC) Count 8.7 10x3/uL (4.8-10.8)
[2022-10-27 06:35] LABS: ALT (SGPT) 14 U/L (8-55); AST (SGOT) 27 U/L (5-34); Albumin 2.6 g/dL (3.4-4.8); Alkaline Phosphatase 65 U/L (40-110); Anion Gap 10 mmol/L (10-20); BUN (Urea Nitrogen) 18 mg/dL (9.8-20.1); Bilirubin, Total 0.3 mg/dL (0.2-1.2); Calc. Creatinine Clearance 64 mL/min (70-130); Calcium 8.5 mg/dL (7.8-10.44); Carbon Dioxide 31 mmol/L (23-31); Chloride 106 mmol/L (98-107); Estimated GFR 76; Globulin 3.1 g/dL (2.4-3.5); Glucose 106 mg/dL (83-110); Potassium 4.6 mmol/L (3.5-5.1); Protein, Total 5.7 g/dL (5.8-8.1); Sodium 142 mmol/L (136-145)
[2022-10-27] MEDS: methylPREDNISolone Sod Succ 40 MG VIAL IVP SCH ×2 (08:52→21:16)
[2022-10-27] MEDS ORDERED: Furosemide 40 MG/4 ML VIAL SLOW IVP SCH (12:45)
[2022-10-27] MEDS: Famotidine/PF 20 mg/2ml Vial SLOW IVP SCH (21:10)
[2022-10-28] MEDS: Ipratropium/Albuterol 3 ML NEB NEB SCH ×4 (01:06→18:09)
[2022-10-28] MEDS: Piperacillin/Tazobactam 3.375 GM in Sodium Chloride 0.9% 100 ML IVPB SCH ×3 (05:27→21:47)
[2022-10-28] MEDS: methylPREDNISolone Sod Succ 40 MG VIAL IVP SCH (08:27)
[2022-10-28 08:53] LABS: Hemoglobin 8.6 g/dL (12.0-16.0); Mean Corpuscular HGB CONC 29.7 g/dL (32.0-36.0); Mean Corpuscular Hemoglobin 29.2 pg (27.0-31.0); Mean Corpuscular Volume 98.3 fl (78.0-98.0); Mean Platelet Volume 7.1 fL (7.4-10.4); Platelet Count 450 10x3/uL (130-400); RBC Distribution Width 14.7 % (11.5-14.5); Red Blood Cell (RBC) Count 2.93 mill/uL (4.20-5.40); White Blood Cell (WBC) Count 7.7 10x3/uL (4.8-10.8)
[2022-10-28 09:07] LABS: Iron 60 ug/dL (50-170); Iron Binding Capacity, Total 143 mcg/dL (265-497)
[2022-10-28 09:15] LABS: ALT (SGPT) 15 U/L (8-55); AST (SGOT) 23 U/L (5-34); Albumin 3.1 g/dL (3.4-4.8); Alkaline Phosphatase 64 U/L (40-110); Anion Gap 11 mmol/L (10-20); BUN (Urea Nitrogen) 22 mg/dL (9.8-20.1); Bilirubin, Total 0.3 mg/dL (0.2-1.2); Calc. Creatinine Clearance 50 mL/min (70-130); Calcium 8.9 mg/dL (7.8-10.44); Carbon Dioxide 36 mmol/L (23-31); Chloride 101 mmol/L (98-107); Estimated GFR 57; Globulin 2.8 g/dL (2.4-3.5); Glucose 96 mg/dL (83-110); Potassium 4.1 mmol/L (3.5-5.1); Protein, Total 5.9 g/dL (5.8-8.1); Sodium 144 mmol/L (136-145)
[2022-10-28 11:13] LABS: Band 16 % (5-11); Hypochromia SLIGHT = 6-15 cells (100X) (0-5/hpf); Lymphocytes 9 % (21-51); MDiff Complete? YES; Monocytes 15 % (0-10); Neutrophil 59 % (42-75); Platelet Morphology Comment Appears Increased; Polychromasia SLIGHT = 2-3 cells (100X) (0-2/hpf); Reactive Lymphocytes 1 % (0-10)
[2022-10-28 14:00] VITALS: BMI 30.1
[2022-10-28] MEDS ORDERED: Furosemide 40 MG/4 ML VIAL SLOW IVP SCH (18:30)
[2022-10-28] MEDS: Famotidine 20 MG TAB PO SCH (21:47)
[2022-10-28] MEDS: Mometasone 200 MCG/Formoterol 5 MCG 120 PUFF INHALER INH SCH (21:52)
[2022-10-29] MEDS: Ipratropium/Albuterol 3 ML NEB NEB SCH ×2 (02:10→06:56)
[2022-10-29] MEDS: Piperacillin/Tazobactam 3.375 GM in Sodium Chloride 0.9% 100 ML IVPB SCH ×3 (06:00→22:22)
[2022-10-29] MEDS: Mometasone 200 MCG/Formoterol 5 MCG 120 PUFF INHALER INH SCH ×2 (06:57→19:56)
[2022-10-29] MEDS ORDERED: Ipratropium/Albuterol 3 ML NEB NEB PRN (07:49)
[2022-10-29 08:25] LABS: ALT (SGPT) 15 U/L (8-55); AST (SGOT) 23 U/L (5-34); Albumin 2.9 g/dL (3.4-4.8); Alkaline Phosphatase 61 U/L (40-110); Anion Gap 15 mmol/L (10-20); BUN (Urea Nitrogen) 22 mg/dL (9.8-20.1); Bilirubin, Total 0.4 mg/dL (0.2-1.2); Calc. Creatinine Clearance 47 mL/min (70-130); Calcium 8.8 mg/dL (7.8-10.44); Carbon Dioxide 33 mmol/L (23-31); Chloride 98 mmol/L (98-107); Estimated GFR 52; Globulin 3.2 g/dL (2.4-3.5); Glucose 78 mg/dL (83-110); Potassium 3.6 mmol/L (3.5-5.1); Protein, Total 6.1 g/dL (5.8-8.1); Sodium 142 mmol/L (136-145)
[2022-10-29 09:00] LABS: Hemoglobin 8.9 g/dL (12.0-16.0); Mean Corpuscular HGB CONC 30.4 g/dL (32.0-36.0); Mean Corpuscular Hemoglobin 29.9 pg (27.0-31.0); Mean Corpuscular Volume 98.3 fl (78.0-98.0); Mean Platelet Volume 7.1 fL (7.4-10.4); Platelet Count 425 10x3/uL (130-400); RBC Distribution Width 14.8 % (11.5-14.5); White Blood Cell (WBC) Count 9.3 10x3/uL (4.8-10.8)
[2022-10-29 10:27] LABS: Band 6 % (5-11); Hypochromia SLIGHT = 6-15 cells (100X) (0-5/hpf); Lymphocytes 13 % (21-51); MDiff Complete? YES; Monocytes 13 % (0-10); Neutrophil 68 % (42-75); Ovalocytes SLIGHT = 2-5 cells (100X) (0-1/hpf); Platelet Morphology Comment Appears Increased; Polychromasia SLIGHT = 2-3 cells (100X) (0-2/hpf)
[2022-10-29] MEDS: predniSONE 20 MG TAB PO SCH (10:43)
[2022-10-29] MEDS ORDERED: acetaZOLAMIDE Sodium 250 MG in Sodium Chloride 0.9% 50 ML IVPB SCH (12:15)
[2022-10-29] MEDS ORDERED: Furosemide 20 MG TAB PO SCH (13:30)
[2022-10-29] MEDS: Famotidine 20 MG TAB PO SCH (20:07)
[2022-10-30] MEDS ORDERED: traMADol HCl 50 MG TAB PO PRN (00:59)
[2022-10-30] MEDS ORDERED: Acetaminophen 325 MG TAB PO PRN (01:13)
[2022-10-30] MEDS: Piperacillin/Tazobactam 3.375 GM in Sodium Chloride 0.9% 100 ML IVPB SCH ×2 (05:28→13:23)
[2022-10-30 07:24] LABS: Mean Corpuscular HGB CONC 30.1 g/dL (32.0-36.0); Mean Corpuscular Volume 99.7 fl (78.0-98.0); Mean Platelet Volume 7.2 fL (7.4-10.4); Platelet Count 407 10x3/uL (130-400); RBC Distribution Width 14.9 % (11.5-14.5); Red Blood Cell (RBC) Count 2.99 mill/uL (4.20-5.40); White Blood Cell (WBC) Count 8.1 10x3/uL (4.8-10.8)
[2022-10-30 07:37] LABS: Anion Gap 11 mmol/L (10-20); BUN (Urea Nitrogen) 24 mg/dL (9.8-20.1); Calc. Creatinine Clearance 46 mL/min (70-130); Calcium 9.2 mg/dL (7.8-10.44); Carbon Dioxide 36 mmol/L (23-31); Chloride 99 mmol/L (98-107); Estimated GFR 51; Glucose 72 mg/dL (83-110); Potassium 3.6 mmol/L (3.5-5.1); Sodium 142 mmol/L (136-145)
[2022-10-30] MEDS: Mometasone 200 MCG/Formoterol 5 MCG 120 PUFF INHALER INH SCH (07:38)
[2022-10-30 08:36] LABS: Band 9 % (5-11); Eosinophils 2 % (0-10); Lymphocytes 10 % (21-51); MDiff Complete? YES; Monocytes 16 % (0-10); Myelocyte 1 % (0-0); Neutrophil 62 % (42-75); Platelet Morphology Comment Appears Increased; Polychromasia SLIGHT = 2-3 cells (100X) (0-2/hpf)
[2022-10-30] MEDS: predniSONE 20 MG TAB PO SCH (08:42)
[2022-10-30] MEDS ORDERED: Furosemide 20 MG TAB PO SCH (09:00)
[2022-10-30 17:14] VITALS: BP 144/71; TEMP 97.7
== END 2022-10-30 17:59 | DRG 871 ==
LOC: ERS 08:16 → ERHOLD 12:16 → IMCU/EMU 21:30 → T4-B 10-26 11:25
PROVIDERS: ADMIT Internal Medicine; ATTEND Internal Medicine
PROC: 5A09357 Assistance with Respiratory Ventilation, Less than 24 Consecutive Hours, Continuous Positive Airway Pressure (ICD-10-PCS; principal; 2022-10-25)
PROC: 3E03329 Introduction of Other Anti-infective into Peripheral Vein, Percutaneous Approach (ICD-10-PCS; 2022-10-25)
DX: A41.9 Sepsis, unspecified organism (principal); J96.21 Acute and chronic respiratory failure with hypoxia; J96.22 Acute and chronic respiratory failure with hypercapnia; J44.1 Chronic obstructive pulmonary disease with (acute) exacerbation; I13.0 Hypertensive heart and chronic kidney disease with heart failure and stage 1 through stage 4 chronic kidney disease, or unspecified chronic kidney disease; G93.49 Other encephalopathy; E87.0 Hyperosmolality and hypernatremia; Z66 Do not resuscitate; Z51.5 Encounter for palliative care; I50.810 Right heart failure, unspecified; N18.30 Chronic kidney disease, stage 3 unspecified; D63.1 Anemia in chronic kidney disease; M81.0 Age-related osteoporosis without current pathological fracture; F03.90 Unspecified dementia, unspecified severity, without behavioral disturbance, psychotic disturbance, mood disturbance, and anxiety; R77.8 Other specified abnormalities of plasma proteins; E87.6 Hypokalemia; L89.102 Pressure ulcer of unspecified part of back, stage 2; D72.829 Elevated white blood cell count, unspecified; Z78.1 Physical restraint status; Z99.81 Dependence on supplemental oxygen; Z87.440 Personal history of urinary (tract) infections; Z86.718 Personal history of other venous thrombosis and embolism; Z95.828 Presence of other vascular implants and grafts; Z90.710 Acquired absence of both cervix and uterus; Z87.891 Personal history of nicotine dependence
CPT/HCPCS: 36415; 51702; 71045; 80048; 80053; 81003; 81015; 82553; 82805; 83540; 83550; 83605; 83880; 84484; 85025; 87040; 93005; 94640; 94660; 94760; 96361; 96365; 96368; 96375; 97139; J0692; J0696; J1120; J1650; J1940; J1956; J2543; J2920; J2930; J3370-JW; J3475; J3490; J7050; J7512; J7611; J7620; S0028

== ENCOUNTER 2022-11-18 02:11 | Inpatient (IN) | payer MEDICARE ==
[2022-11-18] MEDS ORDERED: Morphine 4 MG/ML VIAL ONE (02:35)
[2022-11-18] MEDS ORDERED: Ondansetron PF 4 MG/2 ML Vial ONE ×3 (02:41→16:34)
[2022-11-18 03:06] LABS: #Basophils 0.1 thou/uL (0.0-0.2); #Eosinphils 0.2 thou/uL (0.0-0.7); #Lymphocytes 0.9 thou/uL (1.20-3.40); #Monocytes 1.3 thou/uL (0.11-0.59); #Neutrophils 9.9 thou/uL (1.40-6.50); %Basophils 0.8 % (0.0-1.0); %Eosinophils 1.8 % (0.0-10.0); %Lymphocytes 7.3 % (21.0-51.0); %Monocytes 10.6 % (0.0-10.0); %Neutrophils 79.6 % (42.0-75.0); Hemoglobin 9.2 g/dL (12.0-16.0); Mean Corpuscular HGB CONC 31.4 g/dL (32.0-36.0); Mean Corpuscular Volume 95.6 fl (78.0-98.0); Mean Platelet Volume 7.2 fL (7.4-10.4); Platelet Count 364 10x3/uL (130-400); RBC Distribution Width 14.1 % (11.5-14.5); Red Blood Cell (RBC) Count 3.06 mill/uL (4.20-5.40); White Blood Cell (WBC) Count 12.5 10x3/uL (4.8-10.8)
[2022-11-18 03:20] LABS: INR-International Normal Ratio 0.9; Prothrombin Time 12.8 sec (12.0-14.7)
[2022-11-18 03:23] LABS: SARS-CoV-2 NAA Rapid Test Not Detected (NotDetected)
[2022-11-18 03:28] LABS: ALT (SGPT) 12 U/L (8-55); AST (SGOT) 26 U/L (5-34); Albumin 2.9 g/dL (3.4-4.8); Alkaline Phosphatase 79 U/L (40-110); Anion Gap 13 mmol/L (10-20); BUN (Urea Nitrogen) 24 mg/dL (9.8-20.1); Bilirubin, Total 0.2 mg/dL (0.2-1.2); Calc. Creatinine Clearance 0 mL/min (70-130); Calcium 9.2 mg/dL (7.8-10.44); Carbon Dioxide 35 mmol/L (23-31); Chloride 94 mmol/L (98-107); Estimated GFR 39; Globulin 3.3 g/dL (2.4-3.5); Glucose 116 mg/dL (83-110); Potassium 4.1 mmol/L (3.5-5.1); Protein, Total 6.2 g/dL (5.8-8.1); Sodium 138 mmol/L (136-145)
[2022-11-18] MEDS ORDERED: Ondansetron PF 4 MG/2 ML Vial IVP PRN (03:51)
[2022-11-18] MEDS ORDERED: Dextrose 50% Abboject 50 ML SYRINGE SLOW IVP PRN (03:51)
[2022-11-18] MEDS ORDERED: Dextrose 5% in Water 1,000 ML IV PRN (03:51)
[2022-11-18] MEDS ORDERED: TETANUS, DIPHTHERIA TOX,ADULT (TDVAX) 0.5 ML VIAL IM ONE (03:51)
[2022-11-18] MEDS ORDERED: hydrALAZINE 20 MG/ML VIAL SLOW IVP PRN (03:51)
[2022-11-18] MEDS ORDERED: traMADol HCl 50 MG TAB PO PRN (03:54)
[2022-11-18] MEDS ORDERED: Sodium Chloride 0.9% 1,000 ML IV SCH (04:00)
[2022-11-18 05:18] VITALS: BMI 26.6
[2022-11-18] MEDS ORDERED: traMADol HCl 50 MG TAB ONE (05:52)
[2022-11-18] MEDS ORDERED: Acetaminophen 500 MG TAB ONE (05:53)
[2022-11-18 05:56] LABS: Bacteria/HPF None Seen HPF (None Seen); Bilirubin Negative (Negative); Blood, Urine Negative (Negative); CAUTI Indications for Culture Dysuria,urgency,freq; Clarity Clear (Clear); Glucose, Urine (Dipstick) Normal (Negative); Ketone, Urine Negative (Negative); Leukocyte Negative Leu/uL (Negative); Nitrite Negative (Negative); Protein, Urine (Dipstick) Negative (Neg-Trace); RBC/HPF 0-3 HPF (0-3); Specific Gravity, Urine 1.017 (1.002-1.036); Squamous Epithelial 0-3 HPF (0-3); Urobilinogen Normal mg/dL (Less than 2); pH, Urine 5.5 (5.0-9.0)
[2022-11-18 05:57] LABS: Urine Culture Reflex No No
[2022-11-18] MEDS ORDERED: traMADol HCl 50 MG TAB PO SCH (06:00)
[2022-11-18] MEDS: Acetaminophen 500 MG TAB PO SCH ×4 (06:01→23:20)
[2022-11-18] MEDS ORDERED: CEFAZOLIN 2 GM in Sodium Chloride 0.9% 100 ML IVPB SCH (07:00)
[2022-11-18] MEDS: Levalbuterol HCl 0.63 MG/3 ML NEB NEB SCH ×3 (07:36→18:59)
[2022-11-18] MEDS ORDERED: predniSONE 20 MG TAB PO SCH (08:00)
[2022-11-18] MEDS ORDERED: predniSONE 20 MG TAB ONE (08:33)
[2022-11-18] MEDS: Ferrous Sulfate 325 MG TAB PO SCH ×2 (08:48→17:28)
[2022-11-18] MEDS ORDERED: Sulfameth/Trimethoprim DS 800-160mg TAB PO SCH (09:00)
[2022-11-18] MEDS ORDERED: Famotidine 20 MG TAB PO SCH (09:00)
[2022-11-18] MEDS: Polyethylene Glycol 3350 17 GM Packet PO SCH (09:38)
[2022-11-18] MEDS ORDERED: Famotidine 20 MG TAB ONE (09:39)
[2022-11-18] MEDS ORDERED: Sulfameth/Trimethoprim DS 800-160mg TAB ONE (09:40)
[2022-11-18] MEDS: Ascorbic Acid 500 mg Chewable Tablet PO SCH ×2 (09:44→21:19)
[2022-11-18] MEDS: Senokot S 8.6-50 MG TAB PO SCH ×2 (09:44→21:19)
[2022-11-18] MEDS ORDERED: fentaNYL PF 100 MCG/2 ML SYRINGE ONE (16:02)
[2022-11-18] MEDS ORDERED: CEFAZOLIN 2 GM VIAL ONE (16:15)
[2022-11-18] MEDS ORDERED: Sodium Chloride 0.9% 100 ML ONE (16:15)
[2022-11-18] MEDS ORDERED: Lidocaine 1% PF 5 ML VIAL ONE (16:34)
[2022-11-18] MEDS ORDERED: PHENYLEPHRINE-NS 100 MCG/ML 10 ML SYRINGE ONE (16:34)
[2022-11-18] MEDS ORDERED: PROPOFOL 200 MG/20 ML VIAL ONE (16:34)
[2022-11-18] MEDS ORDERED: Promethazine HCl 25 MG/ML VIAL IM PRN (17:44)
[2022-11-18] MEDS ORDERED: Ondansetron HCl/PF 4 MG/2 ML Vial IVP PRN (17:44)
[2022-11-18] MEDS: Morphine 2 MG/ML VIAL SLOW IVP PRN ×2 (18:21→21:34)
[2022-11-18] MEDS: traMADol HCl 50 MG TAB PO SCH (18:25)
[2022-11-18] MEDS: Sulfameth/Trimethoprim DS 800-160mg TAB PO SCH (21:20)
[2022-11-19] MEDS: Morphine 2 MG/ML VIAL SLOW IVP PRN ×2 (01:12→09:18)
[2022-11-19] MEDS: traMADol HCl 50 MG TAB PO SCH ×2 (05:00→17:03)
[2022-11-19] MEDS: Acetaminophen 500 MG TAB PO SCH ×3 (05:00→17:04)
[2022-11-19 05:52] LABS: #Basophils 0.1 thou/uL (0.0-0.2); #Eosinphils 0.2 thou/uL (0.0-0.7); #Lymphocytes 0.9 thou/uL (1.20-3.40); #Neutrophils 9.9 thou/uL (1.40-6.50); %Basophils 0.7 % (0.0-1.0); %Eosinophils 1.9 % (0.0-10.0); %Lymphocytes 7.6 % (21.0-51.0); %Monocytes 8.3 % (0.0-10.0); %Neutrophils 81.5 % (42.0-75.0); Hemoglobin 7.7 g/dL (12.0-16.0); Mean Corpuscular Hemoglobin 30.3 pg (27.0-31.0); Mean Corpuscular Volume 97.8 fl (78.0-98.0); Mean Platelet Volume 7.2 fL (7.4-10.4); Platelet Count 349 10x3/uL (130-400); RBC Distribution Width 14.1 % (11.5-14.5); Red Blood Cell (RBC) Count 2.54 mill/uL (4.20-5.40); White Blood Cell (WBC) Count 12.2 10x3/uL (4.8-10.8)
[2022-11-19 06:15] LABS: Anion Gap 8 mmol/L (10-20); BUN (Urea Nitrogen) 21 mg/dL (9.8-20.1); Calc. Creatinine Clearance 37 mL/min (70-130); Calcium 8.5 mg/dL (7.8-10.44); Carbon Dioxide 37 mmol/L (23-31); Chloride 98 mmol/L (98-107); Estimated GFR 40; Glucose 89 mg/dL (83-110); Magnesium 1.8 mg/dL (1.6-2.6); Phosphorus 4.6 mg/dL (2.3-4.7); Potassium 4.7 mmol/L (3.5-5.1); Sodium 138 mmol/L (136-145)
[2022-11-19] MEDS: Mometasone 200 MCG/Formoterol 5 MCG 120 PUFF INHALER INH SCH ×2 (06:35→19:08)
[2022-11-19] MEDS: Senokot S 8.6-50 MG TAB PO SCH ×2 (10:04→20:27)
[2022-11-19] MEDS: Ascorbic Acid 500 mg Chewable Tablet PO SCH ×2 (10:04→20:27)
[2022-11-19] MEDS: Heparin 5,000 UNITS/ML VIAL SC SCH ×2 (10:04→20:29)
[2022-11-19] MEDS: predniSONE 20 MG TAB PO SCH (10:04)
[2022-11-19] MEDS: busPIRone HCl 5 MG TAB PO SCH (10:04)
[2022-11-19] MEDS: Sulfameth/Trimethoprim DS 800-160mg TAB PO SCH ×2 (10:04→20:29)
[2022-11-19] MEDS: Ferrous Sulfate 325 MG TAB PO SCH ×2 (10:04→17:03)
[2022-11-19] MEDS: Floranex 1 GM Packet PO SCH (10:05)
[2022-11-19] MEDS: Polyethylene Glycol 3350 17 GM Packet PO SCH (10:05)
[2022-11-19] MEDS: traMADol HCl 50 MG TAB PO PRN (17:03)
[2022-11-19] MEDS: Cyclobenzaprine 10 MG TAB PO PRN (20:28)
[2022-11-20] MEDS: traMADol HCl 50 MG TAB PO PRN (04:25)
[2022-11-20] MEDS: Acetaminophen 500 MG TAB PO SCH ×5 (05:52→23:56)
[2022-11-20] MEDS: traMADol HCl 50 MG TAB PO SCH (05:52)
[2022-11-20 06:08] LABS: #Eosinphils 0.2 thou/uL (0.0-0.7); #Lymphocytes 1.1 thou/uL (1.20-3.40); #Neutrophils 12.5 thou/uL (1.40-6.50); %Basophils 0.3 % (0.0-1.0); %Eosinophils 1.1 % (0.0-10.0); %Lymphocytes 7.7 % (21.0-51.0); %Monocytes 6.7 % (0.0-10.0); %Neutrophils 84.3 % (42.0-75.0); Anion Gap 10 mmol/L (10-20); BUN (Urea Nitrogen) 21 mg/dL (9.8-20.1); Calc. Creatinine Clearance 38 mL/min (70-130); Calcium 8.9 mg/dL (7.8-10.44); Carbon Dioxide 33 mmol/L (23-31); Chloride 98 mmol/L (98-107); Estimated GFR 41; Glucose 63 mg/dL (83-110); Hemoglobin 7.1 g/dL (12.0-16.0); Hypochromia SLIGHT = 6-15 cells (100X) (0-5/hpf); MDiff Complete? YES; Magnesium 1.9 mg/dL (1.6-2.6); Mean Corpuscular HGB CONC 29.9 g/dL (32.0-36.0); Mean Corpuscular Hemoglobin 28.9 pg (27.0-31.0); Mean Corpuscular Volume 96.5 fl (78.0-98.0); Mean Platelet Volume 7.2 fL (7.4-10.4); Phosphorus 3.6 mg/dL (2.3-4.7); Platelet Count 330 10x3/uL (130-400); Potassium 5.3 mmol/L (3.5-5.1); RBC Distribution Width 14.1 % (11.5-14.5); Red Blood Cell (RBC) Count 2.47 mill/uL (4.20-5.40); Sodium 136 mmol/L (136-145); White Blood Cell (WBC) Count 14.9 10x3/uL (4.8-10.8)
[2022-11-20] MEDS: Mometasone 200 MCG/Formoterol 5 MCG 120 PUFF INHALER INH SCH ×2 (06:53→18:32)
[2022-11-20] MEDS ORDERED: Magnesium 2 GM/50 ML(in water) 2 GM in Premix Bag 1 BAG IVPB SCH (09:00)
[2022-11-20] MEDS: Floranex 1 GM Packet PO SCH (09:08)
[2022-11-20] MEDS: Senokot S 8.6-50 MG TAB PO SCH ×2 (09:08→20:34)
[2022-11-20] MEDS: Ferrous Sulfate 325 MG TAB PO SCH ×2 (09:09→17:51)
[2022-11-20] MEDS: Polyethylene Glycol 3350 17 GM Packet PO SCH (09:09)
[2022-11-20] MEDS: Heparin 5,000 UNITS/ML VIAL SC SCH ×2 (09:09→20:35)
[2022-11-20] MEDS: predniSONE 20 MG TAB PO SCH (09:09)
[2022-11-20] MEDS: Sulfameth/Trimethoprim DS 800-160mg TAB PO SCH ×2 (09:09→20:34)
[2022-11-20] MEDS: busPIRone HCl 5 MG TAB PO SCH (09:09)
[2022-11-20] MEDS: Ascorbic Acid 500 mg Chewable Tablet PO SCH ×2 (09:09→20:34)
[2022-11-20] MEDS: Acetaminophen/Codeine 30-300mg Tablet PO SCH ×3 (12:37→23:55)
[2022-11-20] MEDS ORDERED: Furosemide 20 MG/2 ML VIAL SLOW IVP SCH (12:45)
[2022-11-21] MEDS: Acetaminophen/Codeine 30-300mg Tablet PO SCH ×4 (05:19→23:52)
[2022-11-21] MEDS: Acetaminophen 500 MG TAB PO SCH ×4 (05:19→23:52)
[2022-11-21 06:10] LABS: #Basophils 0.1 thou/uL (0.0-0.2); #Eosinphils 0.4 thou/uL (0.0-0.7); #Lymphocytes 1.2 thou/uL (1.20-3.40); #Monocytes 1.2 thou/uL (0.11-0.59); #Neutrophils 12.6 thou/uL (1.40-6.50); %Basophils 0.5 % (0.0-1.0); %Eosinophils 2.3 % (0.0-10.0); %Lymphocytes 7.5 % (21.0-51.0); %Monocytes 7.6 % (0.0-10.0); Hemoglobin 8.9 g/dL (12.0-16.0); Mean Corpuscular HGB CONC 31.9 g/dL (32.0-36.0); Mean Corpuscular Hemoglobin 30.7 pg (27.0-31.0); Mean Corpuscular Volume 96.2 fl (78.0-98.0); Mean Platelet Volume 7.1 fL (7.4-10.4); Platelet Count 371 10x3/uL (130-400); RBC Distribution Width 14.4 % (11.5-14.5); White Blood Cell (WBC) Count 15.4 10x3/uL (4.8-10.8)
[2022-11-21] MEDS: Mometasone 200 MCG/Formoterol 5 MCG 120 PUFF INHALER INH SCH ×2 (06:31→19:08)
[2022-11-21 06:36] LABS: Anion Gap 15 mmol/L (10-20); BUN (Urea Nitrogen) 23 mg/dL (9.8-20.1); Calc. Creatinine Clearance 37 mL/min (70-130); Calcium 9.1 mg/dL (7.8-10.44); Carbon Dioxide 30 mmol/L (23-31); Chloride 94 mmol/L (98-107); Estimated GFR 39; Glucose 67 mg/dL (83-110); Magnesium 2.2 mg/dL (1.6-2.6); Potassium 4.9 mmol/L (3.5-5.1); Sodium 134 mmol/L (136-145)
[2022-11-21] MEDS: Ascorbic Acid 500 mg Chewable Tablet PO SCH ×2 (08:19→20:57)
[2022-11-21] MEDS: Senokot S 8.6-50 MG TAB PO SCH ×2 (08:19→20:57)
[2022-11-21] MEDS: Polyethylene Glycol 3350 17 GM Packet PO SCH (08:19)
[2022-11-21] MEDS: Sulfameth/Trimethoprim DS 800-160mg TAB PO SCH ×2 (08:19→20:58)
[2022-11-21] MEDS: busPIRone HCl 5 MG TAB PO SCH (08:20)
[2022-11-21] MEDS: Heparin 5,000 UNITS/ML VIAL SC SCH ×2 (08:20→20:57)
[2022-11-21] MEDS: predniSONE 20 MG TAB PO SCH (08:20)
[2022-11-21] MEDS: Ferrous Sulfate 325 MG TAB PO SCH ×2 (08:20→17:55)
[2022-11-21] MEDS: Floranex 1 GM Packet PO SCH (08:20)
[2022-11-21] MEDS: Cyclobenzaprine 10 MG TAB PO PRN (20:57)
[2022-11-22] MEDS: Acetaminophen/Codeine 30-300mg Tablet PO SCH ×4 (05:15→23:30)
[2022-11-22] MEDS: Acetaminophen 500 MG TAB PO SCH ×4 (05:16→23:30)
[2022-11-22] MEDS: Mometasone 200 MCG/Formoterol 5 MCG 120 PUFF INHALER INH SCH ×2 (07:19→18:56)
[2022-11-22 07:33] LABS: #Eosinphils 0.3 thou/uL (0.0-0.7); #Lymphocytes 0.7 thou/uL (1.20-3.40); #Neutrophils 13.5 thou/uL (1.40-6.50); %Basophils 0.2 % (0.0-1.0); %Lymphocytes 4.2 % (21.0-51.0); %Monocytes 6.2 % (0.0-10.0); %Neutrophils 87.5 % (42.0-75.0); Hemoglobin 9.2 g/dL (12.0-16.0); Mean Corpuscular HGB CONC 30.5 g/dL (32.0-36.0); Mean Corpuscular Hemoglobin 29.7 pg (27.0-31.0); Mean Corpuscular Volume 97.2 fl (78.0-98.0); Mean Platelet Volume 7.3 fL (7.4-10.4); Platelet Count 377 10x3/uL (130-400); RBC Distribution Width 14.3 % (11.5-14.5); Red Blood Cell (RBC) Count 3.09 mill/uL (4.20-5.40); White Blood Cell (WBC) Count 15.5 10x3/uL (4.8-10.8)
[2022-11-22 07:53] LABS: Anion Gap 14 mmol/L (10-20); BUN (Urea Nitrogen) 23 mg/dL (9.8-20.1); Calc. Creatinine Clearance 48 mL/min (70-130); Calcium 9.1 mg/dL (7.8-10.44); Carbon Dioxide 32 mmol/L (23-31); Chloride 92 mmol/L (98-107); Estimated GFR 54; Glucose 64 mg/dL (83-110); Magnesium 2.1 mg/dL (1.6-2.6); Phosphorus 3.5 mg/dL (2.3-4.7); Potassium 4.4 mmol/L (3.5-5.1); Sodium 134 mmol/L (136-145)
[2022-11-22] MEDS: Heparin 5,000 UNITS/ML VIAL SC SCH ×2 (09:38→21:08)
[2022-11-22] MEDS: Ferrous Sulfate 325 MG TAB PO SCH ×2 (09:39→17:51)
[2022-11-22] MEDS: predniSONE 20 MG TAB PO SCH (09:39)
[2022-11-22] MEDS: busPIRone HCl 5 MG TAB PO SCH (09:39)
[2022-11-22] MEDS: Sulfameth/Trimethoprim DS 800-160mg TAB PO SCH ×2 (09:39→21:08)
[2022-11-22] MEDS: Ascorbic Acid 500 mg Chewable Tablet PO SCH ×2 (09:39→21:08)
[2022-11-22] MEDS: Floranex 1 GM Packet PO SCH (09:39)
[2022-11-22] MEDS: Senokot S 8.6-50 MG TAB PO SCH ×2 (09:40→21:08)
[2022-11-22] MEDS: Polyethylene Glycol 3350 17 GM Packet PO SCH (09:40)
[2022-11-22] MEDS ORDERED: Furosemide 80 MG TAB PO SCH (10:45)
[2022-11-23] MEDS: Acetaminophen/Codeine 30-300mg Tablet PO SCH ×4 (06:42→23:12)
[2022-11-23] MEDS: Acetaminophen 500 MG TAB PO SCH ×4 (06:42→23:12)
[2022-11-23] MEDS ORDERED: Furosemide 80 MG TAB PO SCH (09:00)
[2022-11-23] MEDS: Senokot S 8.6-50 MG TAB PO SCH ×2 (09:46→23:13)
[2022-11-23] MEDS: Floranex 1 GM Packet PO SCH (09:46)
[2022-11-23] MEDS: Ascorbic Acid 500 mg Chewable Tablet PO SCH ×2 (09:46→23:14)
[2022-11-23] MEDS: Polyethylene Glycol 3350 17 GM Packet PO SCH (09:46)
[2022-11-23] MEDS: predniSONE 20 MG TAB PO SCH (09:46)
[2022-11-23] MEDS: busPIRone HCl 5 MG TAB PO SCH (09:46)
[2022-11-23] MEDS: Ferrous Sulfate 325 MG TAB PO SCH ×2 (09:46→17:16)
[2022-11-23] MEDS: Sulfameth/Trimethoprim DS 800-160mg TAB PO SCH ×2 (09:46→23:13)
[2022-11-23] MEDS: Heparin 5,000 UNITS/ML VIAL SC SCH ×2 (09:47→23:15)
[2022-11-23] MEDS: Mometasone 200 MCG/Formoterol 5 MCG 120 PUFF INHALER INH SCH ×2 (10:37→18:39)
[2022-11-23 12:16] LABS: Anion Gap 17 mmol/L (10-20); BUN (Urea Nitrogen) 27 mg/dL (9.8-20.1); Calc. Creatinine Clearance 42 mL/min (70-130); Calcium 9.2 mg/dL (7.8-10.44); Carbon Dioxide 34 mmol/L (23-31); Chloride 89 mmol/L (98-107); Estimated GFR 47; Glucose 92 mg/dL (83-110); Potassium 4.7 mmol/L (3.5-5.1); Sodium 135 mmol/L (136-145)
[2022-11-23] MEDS ORDERED: Azithromycin 500 MG in Sodium Chloride 0.9% 250 ML 250 ML IVPB SCH (14:00)
[2022-11-23] MEDS ORDERED: Levalbuterol HCl 0.63 MG/3 ML NEB NEB SCH (15:00)
[2022-11-23] MEDS ORDERED: cefTRIAXone\\ROCEPHIN 2 GM in Sodium Chloride 0.9% 100 ML IVPB SCH (15:00)
[2022-11-23] MEDS: Levalbuterol HCl 0.63 MG/3 ML NEB NEB SCH ×2 (15:03→22:21)
[2022-11-24 06:24] LABS: Hemoglobin 9.4 g/dL (12.0-16.0); Mean Corpuscular Hemoglobin 30.2 pg (27.0-31.0); Mean Corpuscular Volume 97.4 fl (78.0-98.0); Mean Platelet Volume 7.5 fL (7.4-10.4); Platelet Count 397 10x3/uL (130-400); RBC Distribution Width 14.9 % (11.5-14.5); Red Blood Cell (RBC) Count 3.13 mill/uL (4.20-5.40); White Blood Cell (WBC) Count 16.3 10x3/uL (4.8-10.8)
[2022-11-24] MEDS: Levalbuterol HCl 0.63 MG/3 ML NEB NEB SCH (06:30)
[2022-11-24] MEDS: Mometasone 200 MCG/Formoterol 5 MCG 120 PUFF INHALER INH SCH (06:35)
[2022-11-24 06:45] LABS: Band 8 % (5-11); Lymphocytes 8 % (21-51); MDiff Complete? YES; Monocytes 6 % (0-10); Neutrophil 78 % (42-75)
[2022-11-24 06:52] LABS: Anion Gap 15 mmol/L (10-20); BUN (Urea Nitrogen) 28 mg/dL (9.8-20.1); Calc. Creatinine Clearance 41 mL/min (70-130); Calcium 8.3 mg/dL (7.8-10.44); Carbon Dioxide 35 mmol/L (23-31); Chloride 90 mmol/L (98-107); Estimated GFR 44; Glucose 59 mg/dL (83-110); Magnesium 1.9 mg/dL (1.6-2.6); Phosphorus 3.6 mg/dL (2.3-4.7); Potassium 5.3 mmol/L (3.5-5.1); Sodium 135 mmol/L (136-145)
[2022-11-24] MEDS: Acetaminophen/Codeine 30-300mg Tablet PO SCH (07:32)
[2022-11-24] MEDS: Acetaminophen 500 MG TAB PO SCH (07:33)
[2022-11-24] MEDS ORDERED: Bisacodyl 10 MG SUPP PR PRN (07:48)
[2022-11-24 08:12] VITALS: BP 101/62; TEMP 98.1
[2022-11-24] MEDS: Ascorbic Acid 500 mg Chewable Tablet PO SCH (08:41)
[2022-11-24] MEDS: Senokot S 8.6-50 MG TAB PO SCH (08:41)
[2022-11-24] MEDS: busPIRone HCl 5 MG TAB PO SCH (08:41)
[2022-11-24] MEDS: predniSONE 20 MG TAB PO SCH (08:41)
[2022-11-24] MEDS: Heparin 5,000 UNITS/ML VIAL SC SCH (08:41)
[2022-11-24] MEDS: Polyethylene Glycol 3350 17 GM Packet PO SCH (08:41)
[2022-11-24] MEDS: Ferrous Sulfate 325 MG TAB PO SCH (08:41)
[2022-11-24] MEDS: Floranex 1 GM Packet PO SCH (08:41)
[2022-11-24] MEDS: Sulfameth/Trimethoprim DS 800-160mg TAB PO SCH (08:41)
[2022-11-24] MEDS ORDERED: Azithromycin 250 MG TAB PO SCH (09:00)
== END 2022-11-24 10:11 | DRG 480 ==
LOC: ERS 02:11 → ERHOLD 03:51 → SURG A 12:24
PROVIDERS: ADMIT Surgery; ATTEND Surgery
PROC: 0QS704Z Reposition Left Upper Femur with Internal Fixation Device, Open Approach (ICD-10-PCS; principal; 2022-11-18)
PROC: 30233N1 Transfusion of Nonautologous Red Blood Cells into Peripheral Vein, Percutaneous Approach (ICD-10-PCS; 2022-11-20)
DX: S72.142A Displaced intertrochanteric fracture of left femur, initial encounter for closed fracture (principal); I50.33 Acute on chronic diastolic (congestive) heart failure; J96.11 Chronic respiratory failure with hypoxia; N17.9 Acute kidney failure, unspecified; I13.0 Hypertensive heart and chronic kidney disease with heart failure and stage 1 through stage 4 chronic kidney disease, or unspecified chronic kidney disease; J44.9 Chronic obstructive pulmonary disease, unspecified; F41.9 Anxiety disorder, unspecified; F32.A Depression, unspecified; N18.30 Chronic kidney disease, stage 3 unspecified; F03.90 Unspecified dementia, unspecified severity, without behavioral disturbance, psychotic disturbance, mood disturbance, and anxiety; D63.1 Anemia in chronic kidney disease; R13.10 Dysphagia, unspecified; Z90.710 Acquired absence of both cervix and uterus; Z99.81 Dependence on supplemental oxygen; Z98.890 Other specified postprocedural states; Z95.828 Presence of other vascular implants and grafts; Z87.440 Personal history of urinary (tract) infections; Z86.718 Personal history of other venous thrombosis and embolism; Z87.891 Personal history of nicotine dependence; Z20.822 Contact with and (suspected) exposure to COVID-19; W18.30XA Fall on same level, unspecified, initial encounter; Y92.121 Bathroom in nursing home as the place of occurrence of the external cause
CPT/HCPCS: 36415; 36416; 36430; 71045; 72170; 80048; 80053; 81001; 83735; 83880; 84100; 85025; 85610; 85730; 86850; 86900; 86901; 93005; 94640; 96374; 96375; C1713; G0390; J0456; J0696; J1644; J1940; J2270; J2272; J2405; J2704; J3490; J7050; J7512; J7614; P9016; U0002

== ENCOUNTER 2022-12-19 17:17 | Emergency (ER) | payer MEDICARE ==
[2022-12-19 18:34] LABS: #Lymphocytes 0.7 thou/uL (1.20-3.40); #Monocytes 0.5 thou/uL (0.11-0.59); #Neutrophils 7.1 thou/uL (1.40-6.50); %Basophils 0.4 % (0.0-1.0); %Eosinophils 0.1 % (0.0-10.0); %Lymphocytes 8.2 % (21.0-51.0); %Monocytes 6.3 % (0.0-10.0); Hemoglobin 10.8 g/dL (12.0-16.0); Mean Corpuscular HGB CONC 30.7 g/dL (32.0-36.0); Mean Corpuscular Hemoglobin 30.9 pg (27.0-31.0); Mean Platelet Volume 7.2 fL (7.4-10.4); Platelet Count 361 10x3/uL (130-400); RBC Distribution Width 14.5 % (11.5-14.5); Red Blood Cell (RBC) Count 3.48 mill/uL (4.20-5.40); White Blood Cell (WBC) Count 8.3 10x3/uL (4.8-10.8)
[2022-12-19 18:58] LABS: ALT (SGPT) 15 U/L (8-55); AST (SGOT) 28 U/L (5-34); Albumin 3.5 g/dL (3.4-4.8); Alkaline Phosphatase 106 U/L (40-110); BUN (Urea Nitrogen) 25 mg/dL (9.8-20.1); Bilirubin, Total 0.3 mg/dL (0.2-1.2); Calc. Creatinine Clearance 0 mL/min (70-130); Calcium 9.5 mg/dL (7.8-10.44); Estimated GFR 63; Globulin 3.2 g/dL (2.4-3.5); Glucose 103 mg/dL (83-110); Protein, Total 6.7 g/dL (5.8-8.1)
[2022-12-19 18:59] LABS: Carbon Dioxide Greater than 37 mmol/L (23-31); Chloride 89 mmol/L (98-107); Sodium 145 mmol/L (136-145)
[2022-12-19] MEDS ORDERED: traZODone HCl 50 MG TAB ONE (21:04)
== END 2022-12-19 21:10 ==
LOC: ERS 17:17
DX: J44.1 Chronic obstructive pulmonary disease with (acute) exacerbation (principal); I12.9 Hypertensive chronic kidney disease with stage 1 through stage 4 chronic kidney disease, or unspecified chronic kidney disease; N18.30 Chronic kidney disease, stage 3 unspecified; Z87.891 Personal history of nicotine dependence
CPT/HCPCS: 36415; 71045; 80053; 84484; 85025; 93005; 94760